=== PATIENT | male | born 1950 | race Caucasian/White ===

== ENCOUNTER 2024-12-14 15:44 | Emergency (ER) | payer OTHER ==
[~2024-12-14] VITALS: Ht 160 cm; Wt 110.0 kg
[~2024-12-14 15:44] MED LIST: UNK CHOLESTEROL MED; [UNRECOGNIZED DRUG - REMARK]; [UNRECOGNIZED DRUG - REMARK]
[2024-12-14 16:02] VITALS: BP 157/96; PULSE 63; RESP 14; TEMP 97.7; O2SAT 95
[2024-12-14 16:30] LABS: GLUCOMETER DEV NAME(LOC) ER.7; GLUCOSE,POINT OF CARE 156 MG/DL (70-110)
[2024-12-14] MEDS ORDERED: IBUP-1554 PO (19:24)
[2024-12-14] MEDS ORDERED: ACET-66 PO (19:24)
[2024-12-14] MEDS ORDERED: GABA-1181 PO (19:24)
[2024-12-14] MEDS ORDERED: KETO15CR2 TP (19:53)
[2024-12-14] MEDS ORDERED: SIMV-43 PO (19:53)
[2024-12-14] MEDS ORDERED: TAMS0.4C94 PO (19:53)
[2024-12-14] MEDS ORDERED: ASPI-1444 PO (19:53)
[2024-12-14] MEDS ORDERED: LISI10TA24 PO (19:53)
[2024-12-14] MEDS ORDERED: METF-1211 PO (19:53)
[2024-12-14] MEDS ORDERED: IBUPROFEN 600 MG TABLET ONE (19:58)
[2024-12-14] MEDS: IBUPROFEN 100 MG/5 ML SUSPENSION UDCUP PO ONE (20:00)
[2024-12-14] MEDS: ACETAMINOPHEN 500 MG TABLET PO ONE (20:00)
[2024-12-14] MEDS: GABAPENTIN 300 MG CAPSULE PO ONE (20:00)
== END 2024-12-14 20:16 | disposition home or self-care (01) ==
LOC: EMS 15:44
DX: B35.3 Tinea pedis (principal); M79.671 Pain in right foot; E11.9 Type 2 diabetes mellitus without complications; E78.00 Pure hypercholesterolemia, unspecified; I10 Essential (primary) hypertension; Z79.899 Other long term (current) drug therapy
CPT/HCPCS: 82962; 99284